=== PATIENT | female | born 1990 | race African-American/Black ===

== ENCOUNTER 2017-04-06 09:21 | Inpatient (IN) ==
[2017-04-06] MEDS ORDERED: CITRIC ACID/SODIUM CITRATE 30 ML UDCUP PO ONE (12:12)
[2017-04-06] MEDS ORDERED: FAMOTIDINE 20 MG/2 ML VIAL IV ONE (12:12)
[2017-04-06] MEDS ORDERED: cefOXitin 2,000 MG in SYRINGE 1 EACH IV ONE (12:13)
[2017-04-06 12:32] LABS: Basophils % 0.3 % (0.0-0.8); Eosinophils # 0.1 10*3/uL (0.0-0.87); Eosinophils % 0.8 % (0.00-10.9); Hematocrit 33.9 VOL% (35.7-47.0); Hemoglobin 11.6 GM/DL (12.0-16.0); Immature Granulocytes % 0.7 %; Immature Granulocytes Absolute 0.05 #; Lymphocytes # 2.2 10*3/uL (1.4-4.0); Lymphocytes % 28.6 % (21.3-54.2); Mean Corpuscular HGB Conc 34.2 GM/DL (32-36); Mean Corpuscular Hemoglobin 26 PG (27-34); Mean Corpuscular Volume 75.3 FL (87-102); Mean Platelet Volume 9.8 FL (9.6-12.0); Monocytes # 0.8 10*3/uL (0.11-0.8); Monocytes % 10.3 % (1.7-12.7); Neutrophils # 4.5 10*3/uL (1.4-7.4); Neutrophils % 59.3 % (38.7-73.9); Platelet Count 276 T/CUMM (130-400); Red Cell Distribution Width 14.6 % (9.3-17.3); White Blood Count 7.7 T/CUMM (4-12)
[2017-04-06] MEDS: LACTATED RINGERS 1,000 ML IV SCH ×2 (12:52→15:56)
[2017-04-06] MEDS ORDERED: OXYTOCIN/LR 20 UNIT/1,000 ML BAG IV ONE ×3 (13:22→22:20)
[2017-04-06 13:24] LABS: Alanine Aminotransferase 11 U/L (13-56); Alkaline Phosphatase 208 U/L (45-117); Aspartate Amino Transferase 9 U/L (0-37); Bilirubin,Total < 0.39 MG/DL (0.2-1.0); Blood Urea Nitrogen 5 MG/DL (7-18); Calcium 8.4 MG/DL (8.5-10.1); Glucose 83 MG/DL (74-106); Osmolality,Calculated 272.5 MOS/KG (273-304); Potassium 3.7 MMOL/L (3.5-5.1); Sodium 139 MMOL/L (136-145); Total Protein 6.6 G/DL (6.4-8.3)
[2017-04-06 17:05] LABS: Cord Arterial Blood HCO3 18.2 MMOL/L
[2017-04-06 17:11] LABS: Apearance,Urine CLEAR (Clear); Bacteria,Urine Occasional /HPF (Few); Bilirubin,Urine Negative (Negative); Blood, Urine Negative (Negative); Glucose,Urine (UA) Negative (Negative); Ketones,Urine 80 mg/dL (Negative); Mucus,Urine Few /LPF (Occasional); Nitrite,Urine Negative (Negative); Protein,Urine Negative; RBC,Urine 1 /HPF (0-4); Squamous Epithelial Cell,Urine Occasional /HPF (0-10); Urine Color Yellow (Yellow); Urine Specific Gravity 1.008 (1.001-1.035); Urine Urobilinogen < 2.0 EU/DL (0.2-1.0); WBC,Urine 1 /HPF (0-6)
[2017-04-06] MEDS ORDERED: ONDANSETRON 4 MG/2 ML VIAL ONE (17:33)
[2017-04-06] MEDS ORDERED: MORPHINE 10 MG/10 ML VIAL ONE (17:33)
[2017-04-06] MEDS ORDERED: HYDROmorphone 2 MG/1 ML VIAL IV PRN (18:09)
[2017-04-06] MEDS ORDERED: ACETAMINOPHEN 325 MG TABLET PO PRN (22:20)
[2017-04-06] MEDS ORDERED: RHO(D) IMMUNE GLOBULIN 300 MCG SYRINGE IM ONE (22:20)
[2017-04-06] MEDS ORDERED: ONDANSETRON 4 MG/2 ML VIAL IV PRN (22:20)
[2017-04-06] MEDS: DOCUSATE SODIUM 100 MG CAPSULE PO SCH (23:50)
[2017-04-07] MEDS: LACTATED RINGERS 1,000 ML IV SCH ×2 (00:23→07:33)
[2017-04-07] MEDS: ceFAZolin 1,000 MG in SYRINGE 1 EACH IV SCH ×2 (00:41→08:54)
[2017-04-07] MEDS: diphenhydrAMINE 50 MG/1 ML VIAL IV PRN ×2 (00:51→07:34)
[2017-04-07 06:08] LABS: Basophils % 0.2 % (0.0-0.8); Eosinophils % 0.3 % (0.00-10.9); Hematocrit 30.2 VOL% (35.7-47.0); Hemoglobin 9.8 GM/DL (12.0-16.0); Immature Granulocytes % 0.4 %; Immature Granulocytes Absolute 0.04 #; Lymphocytes % 17.4 % (21.3-54.2); Mean Corpuscular HGB Conc 32.5 GM/DL (32-36); Mean Corpuscular Hemoglobin 25 PG (27-34); Mean Corpuscular Volume 77.4 FL (87-102); Mean Platelet Volume 10.2 FL (9.6-12.0); Monocytes # 0.9 10*3/uL (0.11-0.8); Monocytes % 8.3 % (1.7-12.7); Neutrophils # 8.3 10*3/uL (1.4-7.4); Neutrophils % 73.4 % (38.7-73.9); Platelet Count 234 T/CUMM (130-400); Red Cell Distribution Width 14.5 % (9.3-17.3); White Blood Count 11.2 T/CUMM (4-12)
[2017-04-07] MEDS: MAGNESIUM HYDROXIDE SUSP 30 ML UDCUP PO PRN (08:49)
[2017-04-07] MEDS: DOCUSATE SODIUM 100 MG CAPSULE PO SCH ×2 (08:49→22:10)
[2017-04-07] MEDS: SIMETHICONE CHEW 80 MG TABLET PO PRN ×2 (08:49→22:11)
[2017-04-07] MEDS: MULTIVITAMIN (PRENATAL) TABLET PO SCH (08:49)
[2017-04-07] MEDS: IBUPROFEN 800 MG TABLET PO SCH ×2 (10:28→22:10)
[2017-04-07] MEDS ORDERED: diphenhydrAMINE CAP 25 MG CAPSULE PO PRN (13:06)
[2017-04-08] MEDS: IBUPROFEN 800 MG TABLET PO SCH ×4 (03:17→22:40)
[2017-04-08] MEDS: MULTIVITAMIN (PRENATAL) TABLET PO SCH (09:30)
[2017-04-08] MEDS: DOCUSATE SODIUM 100 MG CAPSULE PO SCH ×2 (09:30→21:08)
[2017-04-08] MEDS ORDERED: INFLUENZA VIRUS VACCINE 0.5 ML SYRINGE IM ONE (12:23)
[2017-04-09] MEDS: IBUPROFEN 800 MG TABLET PO SCH ×2 (06:15→15:05)
[2017-04-09 08:03] VITALS: BP 120/66
[2017-04-09] MEDS: MULTIVITAMIN (PRENATAL) TABLET PO SCH (08:49)
[2017-04-09] MEDS: MAGNESIUM HYDROXIDE SUSP 30 ML UDCUP PO PRN (08:49)
[2017-04-09] MEDS: DOCUSATE SODIUM 100 MG CAPSULE PO SCH (08:49)
[2017-04-09] MEDS ORDERED: INFLUENZA VIRUS VACCINE 0.5 ML SYRINGE IM ONE (12:34)
== END 2017-04-09 16:05 | disposition home or self-care (01) | DRG 766 ==
LOC: N.RAD 09:21 → N.LD 09:30 → N.OB 22:00
PROVIDERS: ADMIT Obstetrics & Gynecology; ATTEND Obstetrics & Gynecology
PROC: LDCSECT (ICD-10-PCS; 2017-04-06 16:00)